=== PATIENT | female | born 1970 | race Caucasian/White ===

== ENCOUNTER → 2020-01-30 | Outpatient (CLI) | payer BC ==
--- NOTE | 2020-02-05 13:04 | SLEEPCENT ---
DATE OF STUDY: 01/30/2020 ORDERED BY: Yudi Swain Nocturnal polysomnography was performed for evaluation of sleep physiology in this patient with history of excessive somnolence and nonrestorative sleep who has comorbidities of heart failure and hypothyroidism. 8 hours and 15 minutes of data were reviewed. There were 413.5 minutes of sleep identified. Sleep latency was mildly prolonged at 29 minutes. REM latency was normal at 68 minutes. Sleep architecture was good with 4 REM cycles. There was some mild fragmentation appreciated. Overall sleep efficiency was 84.3%. The patient's electrocardiogram shows a sinus rhythm with an average heart rate of 68 beats per minute. Rate ranged 50-85. Electroencephalogram (EEG) showed some coarsening in background, no focal events were appreciated. There were 92 respiratory events identified of 10 seconds in duration or greater for an apnea-hypopnea index of 13.3. The events were primarily obstructive, not exclusive to sleep stage nor body posture. Arousals from respiratory events occurred 3.8 times per hour and oxygen desaturations into the 80s were seen. There was some limb activity, but limb movement arousal index was 2.5. IMPRESSION: Obstructive sleep apnea syndrome (G47.33). Apnea-hypopnea index 13.3. RECOMMENDATION: The patient should be encouraged to return to the sleep disorder center for pressure therapy. In the interim, alcohol and sedative avoidance should be practiced and caution exercised during the operation of motor vehicles.
== END ==
LOC: M SLEEP 20:00
PROVIDERS: ATTEND Nurse Practitioner Family
DX: G47.33 Obstructive sleep apnea (adult) (pediatric) (principal)

== ENCOUNTER → 2020-03-19 | Outpatient (CLI) | payer BC ==
--- NOTE | 2020-04-23 14:47 | SLEEPCENT ---
DATE: 03/19/2020 ORDERED BY: MARY Thrasher Nocturnal polysomnography was performed for the titration of pressure therapy in this patient with obstructive sleep apnea syndrome, apnea-hypopnea index 13.3. For testing, the patient was fit with a [employer] [place] View full-face mask of small size, 4 cm of water pressure were applied to the circuit, and the lights were extinguished. There was 7 hours and 53 minutes of data reviewed. There were 403 minutes of sleep identified. Sleep latency was short at 9.5 minutes. REM latency was short at 59.5 minutes. Sleep architecture was fairly good with 5 REM cycles. Overall sleep efficiency was 87.2%. The patients electrocardiogram showed a sinus rhythm with an average heart rate of 78 beats per minute. EEG showed normal waveforms for wake and sleep. Persistence of respiratory events prompted an increase in CPAP pressure. Best sleep was seen on a CPAP pressure of +11 late in the study. There was some scattered limb activity, but remaining measures of sleep physiology were normal. IMPRESSION: Obstructive sleep apnea syndrome (G47.33). RECOMMENDATIONS: Nightly use of pressure therapy 11 cm of water. MTDD
== END ==
LOC: M SLEEP 20:00
PROVIDERS: ATTEND Nurse Practitioner Family
DX: G47.33 Obstructive sleep apnea (adult) (pediatric) (principal)